=== PATIENT | female | born 2000 | race Caucasian/White ===

== ENCOUNTER 2021-03-17 10:10 | Emergency (ER) | payer MEDICAID, SELFPAY ==
[2021-03-17 11:10] VITALS: BP 113/67; PULSE 90; RESP 18; TEMP 36.6; O2SAT 97; BMI 19.9
[2021-03-17 11:32] LABS: UTC Strep Screen (Rapid) Positive (Negative)
--- NOTE | 2021-03-17 11:50 | HMH.EDUTC ---
[facility] [place] Disposition Clinical Impression: Strep throat Disposition: Home, Self-Care Condition on Discharge: Good Instructions: DI for Strep Throat Additional Instructions: Drink plenty of fluids. Take tylenol or ibuprofen for pain or fever. Take the medications as directed. Follow up with your regular doctor. GO TO THE ER FOR ANY WORSENING SYMPTOMS Throw your tooth brush away and get a new one. Prescriptions: Brompheniramine/Pseudoephed/Dm [Bromfed Dm Cough Syrup] 5 ml PO Q6HP PRN #240 syrup PRN Reason: Cough Transmission Status: Received by [facility] #[id number] Ondansetron [Zofran 4mg ODT] 4 mg PO Q8HP PRN #20 tab.rapdis PRN Reason: Nausea Transmission Status: Received by [facility] #[id number] Amoxicillin [Amoxicillin 500mg Tab] 500 mg PO TID 10 Days #30 tab Transmission Status: Received by [facility] #[id number] Referrals: Provider,Referral, MD [Primary Care Provider] - Forms: Work/School Release Time of Disposition: 11:53 Medical Decision Making - Medical Records Medical records reviewed: No: I reviewed the patient's medical records. - Dave Inquiry Pt receiving controlled substance: No Vital Signs: 03/17/21 11:10 03/17/21 12:09 Temperature 97.8 F 98.1 F Temperature Source Oral Pulse Rate 90 Pulse Rate [Left] 90 Respiratory Rate 18 18 Blood Pressure 113/67 Blood Pressure [Right Arm] 113/67 Blood Pressure Mean [Right Arm] 82 02 Sat by Pulse Oximetry 97 - Lab Data Lab results reviewed: Yes: I reviewed the patient's lab results. Lab Results 03/17/21 11:15: Strep Scn [facility] Positive A [facility] [place] HPI - General Stated complaint: sore throat, fever, vomiting Time Seen by Provider: 03/17/21 11:51 Mode of Arrival: Ambulatory Source of Information: Patient Limitations: Physical Limitations Description of Symptoms (Recalled from Triage Doc. by RN): pt requests covid test. pt c/o of sore throat, body aches and n/v HEENT Symptoms (Recalled from RN notes): Yes (sore throat) Resp Symptoms (Recalled from RN notes): No Skin Symptoms (Recalled from RN notes): No MS Symptoms (Recalled from RN notes): No Functional Status (Recalled from RN notes): body aches - History of Present Illness Provider Complaint: She c/o sore throat for the past 2 days. She has ran a fever and had chilling with a sore throat. She denies any known covid exposure. She has had covid-19 before and she does not think this is covid. - Related Data Previous Rx's Medication Instructions Recorded Amoxicillin [Amoxicillin 500mg Tab] 500 mg PO TID 10 Days #30 tab 03/17/21 Brompheniramine/Pseudoephed/Dm 5 ml PO Q6HP PRN #240 syrup 03/17/21 [Bromfed Dm Cough Syrup] Ondansetron [Zofran 4mg ODT] 4 mg PO Q8HP PRN #20 tab.rapdis 03/17/21 Allergies Allergy/AdvReac Type Severity Reaction Status Date / Time NO KNOWN ALLERGIES Allergy Uncoded 07/18/17 15:26 - Worker's Comp Is this a Worker's Comp case?: No [facility] History - Hepatitis A Screen Drug use history?: No High risk sexual behaviors?: No History of sexually transmitted infection?: No Currently employed?: No Childcare worker?: No Do you have indoor plumbing?: Yes Do you have electricity?: Yes Attestation statement:: This patient has been screened for Hepatitis A risk factors. I have reviewed the patient's past medical history: Yes ROS Obtained: Yes All systems reviewed & no additional complaints - Constitutional Constitutional: Reports as per HPI - Eyes Eyes: Denies eye discharge - ENT Ears, Nose, Mouth, and Throat: Reports as per HPI - Cardiovascular Cardiovascular: Denies chest pain - Respiratory Respiratory: Reports chest congestion, Reports cough, Denies dyspnea, Denies stridor, Denies wheezing Physical Exam - General General appearance: alert, in no apparent distress - Head Head exam: atraumatic, normocephalic, normal inspection - Eye Eye exam: Present: normal appearanc
[2021-03-17 12:09] VITALS: BP 113/67; PULSE 90; RESP 18; TEMP 36.7
== END 2021-03-17 12:10 | disposition home or self-care (01) ==
PROVIDERS: Emergency Provider Nurse Practitioner Family
DX: J02.0 Streptococcal pharyngitis (principal)
CPT/HCPCS: 87880; 99203; G0463; U0003